=== PATIENT | female | born 1950 ===

== ENCOUNTER 2017-02-24 12:50 | Inpatient (IN) | payer MEDICARE, MEDICAID ==
[~2017-02-24] VITALS: Ht 170.2 cm; Wt 67.1 kg
[2017-02-24] VITALS (10 sets, daily range): BP systolic 84–130; BP diastolic 46–68
[2017-02-24] MEDS ORDERED: levoFLOXACIN-Levaquin 750MG/D5 150 ML IV ONE (12:55)
[2017-02-24] MEDS ORDERED: vancomycin/NS 1 GM ADD-VANTAGE 250 ML IV ONE (12:55)
[2017-02-24] MEDS ORDERED: methylPREDNISolone sod succ 125mg/2ml vial IV ONE ×2 (12:55→14:50)
[2017-02-24] MEDS ORDERED: magnesium 2GM in 50ml NS 50 ML IV ONE (12:55)
[2017-02-24] MEDS ORDERED: ipratropium/albuterol 3ml nebule NEB ONE (12:55)
[2017-02-24] MEDS ORDERED: normal saline 1000ML IV soln IV ONE (12:55)
[2017-02-24] MEDS ORDERED: ipratropium 0.5 MG/2.5ML nebule IH ONE (13:05)
[2017-02-24] MEDS ORDERED: albuterol 2.5 MG/3 ML nebule CONTNEB PRN (13:05)
[2017-02-24 13:13] LABS: HEMATOCRIT 42.9 % (35.0-45.0); MEAN CORPUSCULAR HEMOGLOBIN 31.6 PG (27.0-31.0); MEAN CORPUSCULAR HGB CONC 32.6 % (33.0-36.5); MEAN CORPUSCULAR VOLUME 96.9 FL (78-98); MEAN PLATELET VOLUME 7.6 FL (7.4-10.4); PLATELET COUNT 350 X10'3 (140-440); RED BLOOD COUNT 4.42 X10'6 (4.20-5.60); RED CELL DISTRIBUTION WIDTH 14.9 % (11.5-14.5)
[2017-02-24] MEDS ORDERED: LORazepam 2 mg/ml vial IV ONE (13:15)
[2017-02-24 13:27] LABS: INR 1.2 INR; PARTIAL THROMBOPLASTIN TIME 25 SECONDS (22-32); PROTHROMBIN TIME 12.5 SECONDS (9.0-12.0)
[2017-02-24 13:29] LABS: WHITE BLOOD COUNT 30.4 X10'3 (4.5-11.0)
[2017-02-24 13:32] LABS: ALANINE AMINOTRANSFERASE 38 U/L (12-78); ALBUMIN 2.7 G/DL (3.4-5.0); ALBUMIN/GLOBULIN RATIO 0.6 (1.1-1.5); ALKALINE PHOSPHATASE 136 IU/L (46-116); ANION GAP 16 (8-16); ASPARTATE AMINO TRANSFERASE 67 U/L (10-37); BLOOD UREA NITROGEN 20 MG/DL (7-18); CALCIUM 9.4 MG/DL (8.5-10.1); CHLORIDE 92 MMOL/L (99-107); CREATININE 1.43 MG/DL (0.40-0.90); GLUCOSE 181 MG/DL (70-104); POTASSIUM 4.1 MMOL/L (3.5-5.1); SODIUM 131 MMOL/L (135-145); TOTAL CARBON DIOXIDE 22.7 MMOL/L (24-32); TOTAL PROTEIN 7.2 G/DL (6.4-8.2); eGFR 37 ML/MIN
[2017-02-24 13:35] LABS: PLATELET ESTIMATE NORMAL; TOTAL CELLS COUNTED 100
[2017-02-24 13:36] LABS: TOXIC GRANULATION 3+
[2017-02-24 13:37] LABS: MAGNESIUM 2.1 MG/DL (1.5-2.4); PHOSPHORUS 5.7 MG/DL (2.3-4.5)
[2017-02-24] MEDS ORDERED: propofol 1000mg/100ml bottle 100 ML IV PRN (13:43)
[2017-02-24] MEDS ORDERED: adenosine 3mg/ml 2ml vial IV ONE ×4 (13:45→14:20)
[2017-02-24] MEDS: NORepinephrine 8mg/ 250ml NS 250 ML IV SCH (14:30)
[2017-02-24] MEDS ORDERED: normal saline 1000ml 1,000 ML IV ONE ×2 (14:30)
[2017-02-24 14:31] LABS: CLARITY,URINE Turbid (Clear); COLOR,URINE Dark Yellow (Yellow); GLUCOSE, URINE 100 mg/dl (Neg); KETONES,URINE Negative (Neg); LEUKOCYTE ESTERASE ,URINE Negative (Neg); NITRITES, URINE Negative (Neg); OCCULT BLOOD,URINE Trace (Neg); PROTEIN,URINE 300 mg/dl (Neg); URINE HCG NEGATIVE (NEG)
[2017-02-24 14:32] LABS: UA COLLECTION TYPE FOLEY CATH
[2017-02-24] MEDS ORDERED: normal saline 1000ML IV soln IVB ONE (14:35)
[2017-02-24] MEDS ORDERED: sodium phosphate inj. 15 MMOL in dextrose 5%-water 150 ML IV PRN (14:40)
[2017-02-24] MEDS ORDERED: magnesium 4gm in 100ml NS 100 ML IV PRN (14:40)
[2017-02-24] MEDS ORDERED: sodium phosphate inj. 30 MMOL in dextrose 5%-water 250 ML IV PRN (14:40)
[2017-02-24] MEDS ORDERED: magnesium 2GM in 50ml NS 50 ML IV PRN (14:40)
[2017-02-24] MEDS ORDERED: enoxaparin 60mg/0.6ml syringe SUBCUT ONE (14:40)
[2017-02-24] MEDS ORDERED: ondansetron/PF 4mg/2ml inj IV PRN (14:40)
[2017-02-24] MEDS ORDERED: acetaminophen 325mg tablet PO PRN ×2 (14:40)
[2017-02-24] MEDS ORDERED: potassium Cl 20 mEq SR tablet PO PRN ×2 (14:40)
[2017-02-24] MEDS ORDERED: magnesium Cl slow-release 64mg tablet PO PRN (14:40)
[2017-02-24] MEDS ORDERED: magnesium hydroxide 30ml (MOM) UD suspension PO PRN (14:40)
[2017-02-24] MEDS ORDERED: Neutra Phos packet PO PRN (14:40)
[2017-02-24] MEDS ORDERED: CefTRIAXone 2gm/NS 100ml IVPB 100 ML IV ONE (14:50)
[2017-02-24] MEDS ORDERED: aspirin 325mg tablet PO ONE (14:50)
[2017-02-24 14:51] LABS: AMORPHOUS URATES 4+
[2017-02-24 14:55] LABS: BACTERIA,URINE FEW /HPF (Neg); RBC,URINE NONE SEEN /HPF (0-2)
[2017-02-24 14:57] LABS: MUCUS STRANDS FEW /LPF (Neg); SQUAMOUS EPITHELIAL CELL,UR FEW /LPF (FEW)
[2017-02-24] MEDS ORDERED: NORepinephrine 8mg/ 250ml NS 250 ML IV SCH (15:00)
[2017-02-24 15:56] LABS: ABG BASE EXCESS -11.3 mmol/L (-2.0-3.0); ABG HCO3 20.5 mmol/L (22.0-26.0); ABG OXYGEN SATURATION 98.1 % (95-98); ABG PCO2 (T) 81.9 mmHg (32.0-45.0); ABG PO2 (T) 168.1 mmHg (83-108); ALLEN'S TEST Positive; FCOHb 0.3 % (0.5-1.5); FMetHb 0.3 % (0.3-1.12); FO2Hb 97.5 % (94-100); MINUTE VOLUME 7 L/min; PATIENT TEMPERATURE 37.7; PEEP 5 cm H2O; RESPIRATORY RATE 16 b/min; TIDAL VOLUME 400 mL; TOTAL HEMOGLOBIN 12.2 G/dl (12.0-16.0)
[2017-02-24] MEDS: ipratropium/albuterol 3ml nebule NEB PRN (16:06)
[2017-02-24] MEDS: DOBUTamine-DoBUTrex 500mg/D5W 250 ML IV SCH (16:57)
[2017-02-24] MEDS: FENTANYL-0.9 % NACL/PF 100 ML IV PRN (17:54)
[2017-02-24] MEDS: midazolam 100mg in NS 100ml 100 ML IV PRN (17:54)
[2017-02-24] MEDS ORDERED: Permethrin 1% 59ml topical rinse TP ONE ×2 (18:12→18:15)
[2017-02-24] MEDS ORDERED: Permethrin Cream 60gm TP ONE (18:20)
[2017-02-24] MEDS: famotidine/PF 10 mg/ml inj IV SCH (19:20)
[2017-02-24] MEDS: methylPREDNISolone sod succ 125mg/2ml vial IV SCH (19:20)
[2017-02-24] MEDS: enoxaparin 60mg/0.6ml syringe SUBCUT SCH (19:21)
[2017-02-24] MEDS: docusate sod 100mg capsule PO SCH (19:51)
[2017-02-24 21:36] LABS: ABG BASE EXCESS -10.7 mmol/L (-2.0-3.0); ABG HCO3 18.7 mmol/L (22.0-26.0); ABG OXYGEN SATURATION 98.5 % (95-98); ABG PCO2 (T) 52.9 mmHg (32.0-45.0); ABG PH (T) 7.153 (7.350-7.450); ABG PO2 (T) 155.3 mmHg (83-108); FCOHb 0.3 % (0.5-1.5); FMetHb 0.2 % (0.3-1.12); MINUTE VOLUME 9 L/min; PATIENT TEMPERATURE 34.9; PEEP 5 cm H2O; RESPIRATORY RATE 18 b/min; RESPIRATORY RATE (OBSERVED) 18 b/min; TIDAL VOLUME 500 mL; TOTAL HEMOGLOBIN 11.9 G/dl (12.0-16.0)
[2017-02-24 21:41] LABS: OXYGEN SATURATION (MIXED VEN) 82.2 % (60-80); PO2 MIXED VENOUS (TEMP COR) 48.3 mmHg (35-46)
[2017-02-24] MEDS ORDERED: albumin (human) 25% 100 ML IV solution IV ONE (21:50)
[2017-02-25] VITALS (25 sets, daily range): BP systolic 90–115; BP diastolic 54–73
[2017-02-25] MEDS: NORepinephrine 8mg/ 250ml NS 250 ML IV SCH (00:45)
[2017-02-25 01:31] LABS: PARTIAL THROMBOPLASTIN TIME 41 SECONDS (22-32)
[2017-02-25 01:42] LABS: ALANINE AMINOTRANSFERASE 1027 U/L (12-78); ALBUMIN 2.6 G/DL (3.4-5.0); ALBUMIN/GLOBULIN RATIO 0.9 (1.1-1.5); ALKALINE PHOSPHATASE 76 IU/L (46-116); ANION GAP 13 (8-16); ASPARTATE AMINO TRANSFERASE 2417 U/L (10-37); BLOOD UREA NITROGEN 23 MG/DL (7-18); BUN/CREATININE RATIO 28.8 (6.6-38.0); CALCIUM 7.7 MG/DL (8.5-10.1); CHLORIDE 104 MMOL/L (99-107); GLUCOSE 190 MG/DL (70-104); PHOSPHORUS 5.1 MG/DL (2.3-4.5); POTASSIUM 4.2 MMOL/L (3.5-5.1); SODIUM 137 MMOL/L (135-145); TOTAL CARBON DIOXIDE 20.2 MMOL/L (24-32); TOTAL PROTEIN 5.5 G/DL (6.4-8.2); eGFR 72 ML/MIN
[2017-02-25 02:04] LABS: BASOPHILS % (AUTO) 0.1 % (0-1); EOSINOPHILS # (AUTO) 0.3 X10'3 (0-0.9); EOSINOPHILS % (AUTO) 1.3 % (0-6); HEMOGLOBIN 10.1 g/dl (12.0-16.0); LYMPHOCYTES # (AUTO) 0.6 X10'3 (1.1-4.8); MEAN CORPUSCULAR HEMOGLOBIN 31.5 PG (27.0-31.0); MEAN CORPUSCULAR HGB CONC 32.7 % (33.0-36.5); MEAN CORPUSCULAR VOLUME 96.3 FL (78-98); MEAN PLATELET VOLUME 7.9 FL (7.4-10.4); MONOCYTES # (AUTO) 0.1 X10'3 (0-0.9); MONOCYTES % (AUTO) 0.5 % (2-12); NEUTROPHILS # (AUTO) 17.9 X10'3 (1.8-7.7); NEUTROPHILS % (AUTO) 95.1 % (42-75); PLATELET COUNT 175 X10'3 (140-440); RED BLOOD COUNT 3.21 X10'6 (4.20-5.60); RED CELL DISTRIBUTION WIDTH 15.1 % (11.5-14.5); WHITE BLOOD COUNT 18.8 X10'3 (4.5-11.0)
[2017-02-25] MEDS: methylPREDNISolone sod succ 125mg/2ml vial IV SCH ×4 (02:09→21:22)
[2017-02-25 04:10] LABS: ABG BASE EXCESS -7.6 mmol/L (-2.0-3.0); ABG HCO3 18.8 mmol/L (22.0-26.0); ABG OXYGEN SATURATION 97.9 % (95-98); ABG PCO2 (T) 40.1 mmHg (32.0-45.0); ABG PH (T) 7.285 (7.350-7.450); ABG PO2 (T) 116.1 mmHg (83-108); FCOHb 0.3 % (0.5-1.5); FMetHb 0.3 % (0.3-1.12); FO2Hb 97.3 % (94-100); MINUTE VOLUME 10 L/min; PATIENT TEMPERATURE 36.2; PEEP 5 cm H2O; RESPIRATORY RATE 18 b/min; RESPIRATORY RATE (OBSERVED) 20 b/min; TIDAL VOLUME 500 mL; TOTAL HEMOGLOBIN 10.5 G/dl (12.0-16.0)
[2017-02-25] MEDS: docusate sod 100mg capsule PO SCH ×2 (08:00→21:23)
[2017-02-25] MEDS ORDERED: CefTRIAXone 2gm/D5W 50ml ADVTG 100 ML IV SCH (08:00)
[2017-02-25] MEDS: CefTRIAXone 2gm/NS 100ml IVPB 100 ML IV SCH (08:08)
[2017-02-25] MEDS: aspirin 325mg tablet PO SCH (08:11)
[2017-02-25] MEDS: enoxaparin 60mg/0.6ml syringe SUBCUT SCH ×2 (08:11→21:24)
[2017-02-25] MEDS: famotidine/PF 10 mg/ml inj IV SCH ×2 (08:11→21:22)
[2017-02-25] MEDS: levoFLOXACIN-Levaquin 500mg/D5 100 ML IV SCH (08:57)
[2017-02-25 09:01] LABS: TROPONIN I 4.42 NG/ML (0.0-0.05)
[2017-02-25] MEDS ORDERED: atorvastatin 20mg tablet PO SCH ×2 (10:05→10:17)
[2017-02-25 10:20] LABS: CHOL/HDL RATIO 4.8 (0.00-4.99); CHOLESTEROL 58 MG/DL (0-200); HDL CHOLESTEROL 12 MG/DL (35-60); LDL CHOLESTEROL 35 MG/DL (50-100); TRIGLYCERIDES 46 MG/DL (20-135)
[2017-02-25] MEDS ORDERED: MESSAGE TO PHARMACY PO ONE (10:35)
[2017-02-25] MEDS ORDERED: dextrose 50%-water 50ml dispensing syringe IV PRN (10:35)
[2017-02-25] MEDS ORDERED: glucagon, human recombinant 1mg kit SUBCUT PRN (10:35)
[2017-02-25] MEDS ORDERED: dextrose ORAL solution 15 GM/59 ML bottle PO PRN ×2 (10:35)
[2017-02-25] MEDS ORDERED: UNABLE TO OBTAIN (11:34)
[2017-02-25] MEDS: FENTANYL-0.9 % NACL/PF 100 ML IV PRN (11:36)
[2017-02-25 11:59] LABS: HEMOGLOBIN A1C 5.5 % (4.5-6.2)
[2017-02-25 15:27] LABS: HIV ANTIBODY 1&2 RAPID NON-REACTIVE (Neg)
[2017-02-25] MEDS: insulin glargine (Lantus) pen - multi-dose SQ SCH (21:00)
[2017-02-25] MEDS: DOBUTamine-DoBUTrex 500mg/D5W 250 ML IV SCH (23:34)
[2017-02-26] VITALS (22 sets, daily range): BP systolic 96–124; BP diastolic 53–72
[2017-02-26] MEDS: methylPREDNISolone sod succ 125mg/2ml vial IV SCH ×4 (01:12→22:22)
[2017-02-26 02:03] LABS: PARTIAL THROMBOPLASTIN TIME 36 SECONDS (22-32)
[2017-02-26 02:14] LABS: BASOPHILS % (AUTO) 0 % (0-1); EOSINOPHILS # (AUTO) 0.3 X10'3 (0-0.9); EOSINOPHILS % (AUTO) 2.4 % (0-6); HEMOGLOBIN 9.2 g/dl (12.0-16.0); LYMPHOCYTES # (AUTO) 0.3 X10'3 (1.1-4.8); LYMPHOCYTES % (AUTO) 2.4 % (21-51); MEAN CORPUSCULAR HEMOGLOBIN 31.1 PG (27.0-31.0); MEAN CORPUSCULAR HGB CONC 32.7 % (33.0-36.5); MEAN CORPUSCULAR VOLUME 95.1 FL (78-98); MEAN PLATELET VOLUME 8.1 FL (7.4-10.4); MONOCYTES # (AUTO) 0.3 X10'3 (0-0.9); MONOCYTES % (AUTO) 1.8 % (2-12); NEUTROPHILS % (AUTO) 93.4 % (42-75); PLATELET COUNT 180 X10'3 (140-440); RED BLOOD COUNT 2.95 X10'6 (4.20-5.60); WHITE BLOOD COUNT 13.9 X10'3 (4.5-11.0)
[2017-02-26 02:19] LABS: ALANINE AMINOTRANSFERASE 720 U/L (12-78); ALBUMIN 2.2 G/DL (3.4-5.0); ALBUMIN/GLOBULIN RATIO 0.7 (1.1-1.5); ALKALINE PHOSPHATASE 98 IU/L (46-116); ANION GAP 9 (8-16); ASPARTATE AMINO TRANSFERASE 770 U/L (10-37); BILIRUBIN,TOTAL 0.6 MG/DL (0.1-1.0); BLOOD UREA NITROGEN 19 MG/DL (7-18); BUN/CREATININE RATIO 23.8 (6.6-38.0); CALCIUM 8.4 MG/DL (8.5-10.1); CHLORIDE 107 MMOL/L (99-107); GLUCOSE 198 MG/DL (70-104); MAGNESIUM 2.1 MG/DL (1.5-2.4); PHOSPHORUS 2.4 MG/DL (2.3-4.5); POTASSIUM 3.8 MMOL/L (3.5-5.1); SODIUM 140 MMOL/L (135-145); TOTAL CARBON DIOXIDE 23.9 MMOL/L (24-32); TOTAL PROTEIN 5.4 G/DL (6.4-8.2); eGFR 72 ML/MIN
[2017-02-26 02:20] LABS: TROPONIN I 4.11 NG/ML (0.0-0.05)
[2017-02-26 02:46] LABS: ABG BASE EXCESS -1.5 mmol/L (-2.0-3.0); ABG HCO3 22.4 mmol/L (22.0-26.0); ABG OXYGEN SATURATION 95.2 % (95-98); ABG PCO2 (T) 33.6 mmHg (32.0-45.0); ABG PO2 (T) 75.7 mmHg (83-108); FCOHb 0.3 % (0.5-1.5); FMetHb 0.3 % (0.3-1.12); FO2Hb 94.6 % (94-100); MINUTE VOLUME 10 L/min; PATIENT TEMPERATURE 36.3; PEEP 5 cm H2O; RESPIRATORY RATE 18 b/min; RESPIRATORY RATE (OBSERVED) 18 b/min; TIDAL VOLUME 500 mL; TOTAL HEMOGLOBIN 9.9 G/dl (12.0-16.0)
[2017-02-26] MEDS: docusate sod 100mg capsule PO SCH ×2 (08:00→22:21)
[2017-02-26] MEDS: FENTANYL-0.9 % NACL/PF 100 ML IV PRN (08:09)
[2017-02-26] MEDS: midazolam 100mg in NS 100ml 100 ML IV PRN (08:09)
[2017-02-26] MEDS: LACTOBACILLUS RHAMNOSUS GG 15 billion unit sprinkle caps PO SCH (08:20)
[2017-02-26] MEDS: furosemide 20 MG/2 ML vial IV SCH ×3 (08:21→23:50)
[2017-02-26] MEDS: CefTRIAXone 2gm/NS 100ml IVPB 100 ML IV SCH (08:21)
[2017-02-26] MEDS: famotidine/PF 10 mg/ml inj IV SCH ×2 (08:21→22:21)
[2017-02-26] MEDS: enoxaparin 60mg/0.6ml syringe SUBCUT SCH ×2 (08:22→22:22)
[2017-02-26] MEDS: aspirin 325mg tablet PO SCH (08:23)
[2017-02-26] MEDS: levoFLOXACIN-Levaquin 500mg/D5 100 ML IV SCH (09:47)
[2017-02-26] MEDS ORDERED: potassium Cl 40MEQ/250ML bag 250 ML IV PRN (11:25)
[2017-02-26] MEDS ORDERED: magnesium 4gm in 100ml NS 100 ML IV PRN (11:25)
[2017-02-26] MEDS: insulin regular, human vial - multi-dose SQ SCH ×2 (14:10→22:27)
[2017-02-26] MEDS ORDERED: lactulose 20gm/30ml cup PO PRN (14:40)
[2017-02-26] MEDS ORDERED: bisacodyl 10mg suppository rectal RC PRN (14:40)
[2017-02-26] MEDS: potassium Cl 40MEQ/250ML bag 250 ML IV PRN (15:24)
[2017-02-26] MEDS ORDERED: fentaNYL/PF 50MCG/1 ML 2ML syringe ONE (15:53)
[2017-02-26] MEDS ORDERED: midazolam 2 mg/2 ml injection ONE (15:53)
[2017-02-26] MEDS ORDERED: heparin 1,000unit/ml 10ml vial 10 ML ONE (15:53)
[2017-02-26] MEDS ORDERED: LIDOcaine 1%/PF (10mg/ml) 5ml vial ONE (15:53)
[2017-02-26] MEDS ORDERED: nitroGLYCERIN-Tridil 50MG/D5W 250 ML IV ONE (15:53)
[2017-02-26] MEDS ORDERED: iohexol 350 MG/ML 50ML vial IV ONE (15:54)
[2017-02-26] MEDS ORDERED: iohexol 350MG/ML 100ml bottle IV ONE (15:54)
[2017-02-26] MEDS ORDERED: furosemide 40mg/4ml inj ONE (17:26)
[2017-02-26 18:16] LABS: ISTAT Hct MIX 25 %PCV (35-48); ISTAT O2 SATURATION MIX VENOUS 50 % (60-80); ISTAT SOURCE MIX
[2017-02-26 18:16] LABS: ISTAT HGB ART 8.5 g/dl (12.0-16.0); ISTAT Hct ART 25 %PCV (35-48); ISTAT O2 SATURATION ARTERIAL 100 % (95-98); ISTAT SOURCE ART
[2017-02-26] MEDS ORDERED: aspirin 81mg tab.chew PO ONE (20:45)
[2017-02-26] MEDS: atorvastatin 20mg tablet PO SCH (22:23)
[2017-02-26] MEDS: insulin glargine (Lantus) pen - multi-dose SQ SCH (22:24)
[2017-02-27] VITALS (24 sets, daily range): BP systolic 75–142; BP diastolic 55–100
[2017-02-27] MEDS: FENTANYL-0.9 % NACL/PF 100 ML IV PRN ×2 (00:50→16:24)
[2017-02-27] MEDS: methylPREDNISolone sod succ 125mg/2ml vial IV SCH ×4 (02:00→20:39)
[2017-02-27 03:38] LABS: PARTIAL THROMBOPLASTIN TIME 31 SECONDS (22-32)
[2017-02-27 03:41] LABS: ALANINE AMINOTRANSFERASE 456 U/L (12-78); ALBUMIN/GLOBULIN RATIO 0.6 (1.1-1.5); ALKALINE PHOSPHATASE 120 IU/L (46-116); ANION GAP 7 (8-16); ASPARTATE AMINO TRANSFERASE 194 U/L (10-37); BILIRUBIN,TOTAL 0.4 MG/DL (0.1-1.0); BLOOD UREA NITROGEN 27 MG/DL (7-18); CALCIUM 8.2 MG/DL (8.5-10.1); CHLORIDE 110 MMOL/L (99-107); GLUCOSE 142 MG/DL (70-104); MAGNESIUM 2.2 MG/DL (1.5-2.4); PHOSPHORUS 2.3 MG/DL (2.3-4.5); POTASSIUM 4.4 MMOL/L (3.5-5.1); SODIUM 145 MMOL/L (135-145); TOTAL CARBON DIOXIDE 28.1 MMOL/L (24-32); TOTAL PROTEIN 5.4 G/DL (6.4-8.2); eGFR 63 ML/MIN
[2017-02-27 03:49] LABS: BASOPHILS % (AUTO) 0.1 % (0-1); EOSINOPHILS % (AUTO) 0 % (0-6); HEMATOCRIT 26.2 % (35.0-45.0); HEMOGLOBIN 9.1 g/dl (12.0-16.0); LYMPHOCYTES # (AUTO) 0.4 X10'3 (1.1-4.8); LYMPHOCYTES % (AUTO) 3.3 % (21-51); MEAN CORPUSCULAR HEMOGLOBIN 32.9 PG (27.0-31.0); MEAN CORPUSCULAR HGB CONC 34.6 % (33.0-36.5); MEAN CORPUSCULAR VOLUME 95.1 FL (78-98); MONOCYTES # (AUTO) 0.2 X10'3 (0-0.9); MONOCYTES % (AUTO) 1.6 % (2-12); PLATELET COUNT 161 X10'3 (140-440); RED BLOOD COUNT 2.75 X10'6 (4.20-5.60); RED CELL DISTRIBUTION WIDTH 14.1 % (11.5-14.5); WHITE BLOOD COUNT 11.6 X10'3 (4.5-11.0)
[2017-02-27 04:05] LABS: ABG BASE EXCESS 0.5 mmol/L (-2.0-3.0); ABG HCO3 24.1 mmol/L (22.0-26.0); ABG OXYGEN SATURATION 97.7 % (95-98); ABG PCO2 (T) 33.3 mmHg (32.0-45.0); ABG PH (T) 7.474 (7.350-7.450); ABG PO2 (T) 101.8 mmHg (83-108); FCOHb 0.3 % (0.5-1.5); FMetHb 0.3 % (0.3-1.12); FO2Hb 97.1 % (94-100); MINUTE VOLUME 9 L/min; PATIENT TEMPERATURE 35.9; PEEP 5 cm H2O; RESPIRATORY RATE 18 b/min; RESPIRATORY RATE (OBSERVED) 18 b/min; TIDAL VOLUME 500 mL; TOTAL HEMOGLOBIN 9.7 G/dl (12.0-16.0)
[2017-02-27] MEDS: ipratropium/albuterol 3ml nebule NEB PRN (05:03)
[2017-02-27] MEDS: carVEDilol 3.125mg tablet PO SCH ×3 (08:00→20:40)
[2017-02-27] MEDS: K and/or MAG REPLACEMENT MC SCH (08:00)
[2017-02-27] MEDS: CefTRIAXone 2gm/NS 100ml IVPB 100 ML IV SCH (08:18)
[2017-02-27] MEDS: DOBUTamine-DoBUTrex 500mg/D5W 250 ML IV SCH (08:18)
[2017-02-27] MEDS: levoFLOXACIN-Levaquin 500mg/D5 100 ML IV SCH (08:18)
[2017-02-27] MEDS: docusate sod 100mg capsule PO SCH ×2 (08:18→20:40)
[2017-02-27] MEDS: LACTOBACILLUS RHAMNOSUS GG 15 billion unit sprinkle caps PO SCH (08:19)
[2017-02-27] MEDS: sacubitril/valsartan 24mg-26mg tablet PO SCH ×2 (08:19→20:39)
[2017-02-27] MEDS: aspirin 81mg tab.chew PO SCH (08:19)
[2017-02-27] MEDS: famotidine/PF 10 mg/ml inj IV SCH ×2 (08:22→20:39)
[2017-02-27] MEDS: furosemide 20 MG/2 ML vial IV SCH ×2 (08:22→16:27)
[2017-02-27] MEDS: insulin regular, human vial - multi-dose SQ SCH ×3 (08:40→20:51)
[2017-02-27] MEDS: spironolactone 25 MG tablet PO SCH ×2 (09:38→20:40)
[2017-02-27] MEDS ORDERED: lactulose 20gm/30ml cup PO PRN (10:15)
[2017-02-27 13:28] LABS: HEPATITIS C ANTIBODY <0.1 s/co ratio (0.0-0.9)
[2017-02-27] MEDS: midazolam 100mg in NS 100ml 100 ML IV PRN (16:25)
[2017-02-27] MEDS: NORepinephrine 8mg/ 250ml NS 250 ML IV SCH (16:27)
[2017-02-27] MEDS: atorvastatin 20mg tablet PO SCH (20:40)
[2017-02-27] MEDS: insulin glargine (Lantus) pen - multi-dose SQ SCH (20:47)
[2017-02-27 22:17] LABS: POTASSIUM 3.5 MMOL/L (3.5-5.1)
[2017-02-27] MEDS ORDERED: potassium Cl 40MEQ/250ML bag 250 ML IV ONE (22:42)
[2017-02-27] MEDS: normal saline 1000ml 1,000 ML IV SCH (22:52)
[2017-02-28] VITALS (24 sets, daily range): BP systolic 82–121; BP diastolic 54–78
[2017-02-28] MEDS: methylPREDNISolone sod succ 125mg/2ml vial IV SCH ×4 (02:37→19:56)
[2017-02-28 02:39] LABS: BASOPHILS % (AUTO) 0 % (0-1); EOSINOPHILS # (AUTO) 0.2 X10'3 (0-0.9); EOSINOPHILS % (AUTO) 1.1 % (0-6); HEMATOCRIT 29.6 % (35.0-45.0); HEMOGLOBIN 9.7 g/dl (12.0-16.0); LYMPHOCYTES # (AUTO) 0.3 X10'3 (1.1-4.8); LYMPHOCYTES % (AUTO) 1.8 % (21-51); MEAN CORPUSCULAR HEMOGLOBIN 31.4 PG (27.0-31.0); MEAN CORPUSCULAR HGB CONC 32.7 % (33.0-36.5); MONOCYTES # (AUTO) 0.1 X10'3 (0-0.9); MONOCYTES % (AUTO) 0.8 % (2-12); NEUTROPHILS # (AUTO) 15.5 X10'3 (1.8-7.7); NEUTROPHILS % (AUTO) 96.3 % (42-75); PLATELET COUNT 234 X10'3 (140-440); RED BLOOD COUNT 3.09 X10'6 (4.20-5.60); RED CELL DISTRIBUTION WIDTH 15.7 % (11.5-14.5); WHITE BLOOD COUNT 16.1 X10'3 (4.5-11.0)
[2017-02-28] MEDS: insulin regular, human vial - multi-dose SQ SCH ×3 (02:39→20:04)
[2017-02-28 03:07] LABS: ALANINE AMINOTRANSFERASE 338 U/L (12-78); ALBUMIN/GLOBULIN RATIO 0.5 (1.1-1.5); ALKALINE PHOSPHATASE 123 IU/L (46-116); ANION GAP 7 (8-16); ASPARTATE AMINO TRANSFERASE 100 U/L (10-37); BILIRUBIN,TOTAL 0.4 MG/DL (0.1-1.0); BLOOD UREA NITROGEN 24 MG/DL (7-18); CALCIUM 8.5 MG/DL (8.5-10.1); CHLORIDE 111 MMOL/L (99-107); CHOL/HDL RATIO 3.4 (0.00-4.99); CHOLESTEROL 85 MG/DL (0-200); GLUCOSE 199 MG/DL (70-104); HDL CHOLESTEROL 25 MG/DL (35-60); LDL CHOLESTEROL 49 MG/DL (50-100); MAGNESIUM 2.1 MG/DL (1.5-2.4); PHOSPHORUS 2.8 MG/DL (2.3-4.5); SODIUM 147 MMOL/L (135-145); TOTAL CARBON DIOXIDE 28.9 MMOL/L (24-32); TOTAL PROTEIN 6.1 G/DL (6.4-8.2); TRIGLYCERIDES 60 MG/DL (20-135); eGFR 72 ML/MIN
[2017-02-28 03:27] LABS: PARTIAL THROMBOPLASTIN TIME 27 SECONDS (22-32)
[2017-02-28 03:36] LABS: ANISOCYTOSIS 1+; PLATELET ESTIMATE NORMAL; TOTAL CELLS COUNTED 100
[2017-02-28 03:37] LABS: TOXIC GRANULATION 1+
[2017-02-28 04:05] LABS: ABG BASE EXCESS 4.4 mmol/L (-2.0-3.0); ABG HCO3 28.9 mmol/L (22.0-26.0); ABG OXYGEN SATURATION 90.4 % (95-98); ABG PH (T) 7.462 (7.350-7.450); ABG PO2 (T) 54.2 mmHg (83-108); ALLEN'S TEST Positive; FCOHb 0.1 % (0.5-1.5); FMetHb 0.3 % (0.3-1.12); MINUTE VOLUME 7 L/min; PATIENT TEMPERATURE 36.2; PEEP 5 cm H2O; RESPIRATORY RATE (OBSERVED) 16 b/min; TIDAL VOLUME 701 mL
[2017-02-28] MEDS: aspirin 81mg tab.chew PO SCH (07:51)
[2017-02-28] MEDS: CefTRIAXone 2gm/NS 100ml IVPB 100 ML IV SCH (07:51)
[2017-02-28] MEDS: famotidine/PF 10 mg/ml inj IV SCH ×2 (07:51→19:53)
[2017-02-28] MEDS: LACTOBACILLUS RHAMNOSUS GG 15 billion unit sprinkle caps PO SCH (07:51)
[2017-02-28] MEDS: furosemide 20 MG/2 ML vial IV SCH ×3 (07:52→16:00)
[2017-02-28] MEDS: sacubitril/valsartan 24mg-26mg tablet PO SCH (07:52)
[2017-02-28] MEDS: carVEDilol 3.125mg tablet PO SCH ×2 (07:52→19:57)
[2017-02-28] MEDS: docusate sod 100mg capsule PO SCH ×2 (07:52→19:57)
[2017-02-28] MEDS: levoFLOXACIN-Levaquin 500mg/D5 100 ML IV SCH (07:52)
[2017-02-28] MEDS: spironolactone 25 MG tablet PO SCH ×2 (07:52→19:57)
[2017-02-28] MEDS: K and/or MAG REPLACEMENT MC SCH (08:00)
[2017-02-28] MEDS: ipratropium/albuterol 3ml nebule NEB SCH ×4 (11:14→22:51)
[2017-02-28] MEDS: DOBUTamine-DoBUTrex 500mg/D5W 250 ML IV SCH (16:17)
[2017-02-28] MEDS: FENTANYL-0.9 % NACL/PF 100 ML IV PRN (16:17)
[2017-02-28] MEDS: midazolam 100mg in NS 100ml 100 ML IV PRN (19:49)
[2017-02-28] MEDS: NORepinephrine 8mg/ 250ml NS 250 ML IV SCH (19:50)
[2017-02-28] MEDS: atorvastatin 20mg tablet PO SCH (19:57)
[2017-02-28] MEDS: insulin glargine (Lantus) pen - multi-dose SQ SCH (20:05)
[2017-03-01] VITALS (24 sets, daily range): BP systolic 82–139; BP diastolic 54–91
[2017-03-01] MEDS: normal saline 1000ml 1,000 ML IV SCH (00:05)
[2017-03-01] MEDS: methylPREDNISolone sod succ 125mg/2ml vial IV SCH ×4 (02:18→21:25)
[2017-03-01] MEDS: insulin regular, human vial - multi-dose SQ SCH ×5 (02:22→21:34)
[2017-03-01 02:40] LABS: BASOPHILS % (AUTO) 0 % (0-1); EOSINOPHILS # (AUTO) 0.3 X10'3 (0-0.9); EOSINOPHILS % (AUTO) 1.7 % (0-6); HEMATOCRIT 29.1 % (35.0-45.0); HEMOGLOBIN 9.4 g/dl (12.0-16.0); LYMPHOCYTES # (AUTO) 0.3 X10'3 (1.1-4.8); MEAN CORPUSCULAR HEMOGLOBIN 31.4 PG (27.0-31.0); MEAN CORPUSCULAR HGB CONC 32.5 % (33.0-36.5); MEAN CORPUSCULAR VOLUME 96.6 FL (78-98); MONOCYTES # (AUTO) 0.4 X10'3 (0-0.9); MONOCYTES % (AUTO) 2.7 % (2-12); NEUTROPHILS # (AUTO) 15.3 X10'3 (1.8-7.7); NEUTROPHILS % (AUTO) 93.6 % (42-75); PLATELET COUNT 202 X10'3 (140-440); RED BLOOD COUNT 3.01 X10'6 (4.20-5.60); RED CELL DISTRIBUTION WIDTH 15.7 % (11.5-14.5); WHITE BLOOD COUNT 16.4 X10'3 (4.5-11.0)
[2017-03-01 02:51] LABS: PARTIAL THROMBOPLASTIN TIME 26 SECONDS (22-32)
[2017-03-01] MEDS: ipratropium/albuterol 3ml nebule NEB SCH ×6 (02:52→22:29)
[2017-03-01 03:02] LABS: ALANINE AMINOTRANSFERASE 228 U/L (12-78); ALBUMIN 1.7 G/DL (3.4-5.0); ALBUMIN/GLOBULIN RATIO 0.5 (1.1-1.5); ALKALINE PHOSPHATASE 110 IU/L (46-116); ANION GAP 5 (8-16); ASPARTATE AMINO TRANSFERASE 44 U/L (10-37); BILIRUBIN,TOTAL 0.4 MG/DL (0.1-1.0); BLOOD UREA NITROGEN 25 MG/DL (7-18); BUN/CREATININE RATIO 41.7 (6.6-38.0); CALCIUM 8.1 MG/DL (8.5-10.1); CHLORIDE 114 MMOL/L (99-107); GLUCOSE 183 MG/DL (70-104); PHOSPHORUS 3.2 MG/DL (2.3-4.5); POTASSIUM 3.4 MMOL/L (3.5-5.1); SODIUM 150 MMOL/L (135-145); TOTAL CARBON DIOXIDE 30.7 MMOL/L (24-32); TOTAL PROTEIN 5.2 G/DL (6.4-8.2); eGFR > 90 ML/MIN
[2017-03-01 04:10] LABS: ABG BASE EXCESS 3.3 mmol/L (-2.0-3.0); ABG HCO3 27.9 mmol/L (22.0-26.0); ABG OXYGEN SATURATION 95.2 % (95-98); ABG PCO2 (T) 41.3 mmHg (32.0-45.0); ABG PH (T) 7.445 (7.350-7.450); ABG PO2 (T) 74.3 mmHg (83-108); ALLEN'S TEST Positive; FCOHb 0.3 % (0.5-1.5); FMetHb 0.3 % (0.3-1.12); FO2Hb 94.6 % (94-100); MINUTE VOLUME 10 L/min; PATIENT TEMPERATURE 36.4; PEEP 5 cm H2O; RESPIRATORY RATE 16 b/min; RESPIRATORY RATE (OBSERVED) 23 b/min; TIDAL VOLUME 400 mL; TOTAL HEMOGLOBIN 10.7 G/dl (12.0-16.0)
[2017-03-01] MEDS ORDERED: potassium Cl 40MEQ/250ML bag 250 ML IV ONE (04:36)
[2017-03-01] MEDS: FENTANYL-0.9 % NACL/PF 100 ML IV PRN ×2 (04:43→21:24)
[2017-03-01] MEDS: potassium Cl 40MEQ/250ML bag 250 ML IV PRN (04:50)
[2017-03-01] MEDS: K and/or MAG REPLACEMENT MC SCH (07:01)
[2017-03-01] MEDS: carVEDilol 3.125mg tablet PO SCH ×2 (08:00→20:00)
[2017-03-01] MEDS: furosemide 20 MG/2 ML vial IV SCH ×3 (08:00→16:00)
[2017-03-01] MEDS: docusate sodium 100mg/10ml UD cup PO SCH ×2 (08:00→20:00)
[2017-03-01] MEDS: LACTOBACILLUS RHAMNOSUS GG 15 billion unit sprinkle caps PO SCH (09:12)
[2017-03-01] MEDS: famotidine/PF 10 mg/ml inj IV SCH ×2 (09:13→21:25)
[2017-03-01] MEDS: CefTRIAXone 2gm/NS 100ml IVPB 100 ML IV SCH (09:14)
[2017-03-01] MEDS: aspirin 81mg tab.chew PO SCH (09:17)
[2017-03-01] MEDS: spironolactone 25 MG tablet PO SCH ×2 (09:18→21:25)
[2017-03-01] MEDS: levoFLOXACIN-Levaquin 500mg/D5 100 ML IV SCH (10:07)
[2017-03-01] MEDS: midazolam 100mg in NS 100ml 100 ML IV PRN (10:32)
[2017-03-01] MEDS: DOBUTamine-DoBUTrex 500mg/D5W 250 ML IV SCH (17:51)
[2017-03-01] MEDS: atorvastatin 20mg tablet PO SCH (21:25)
[2017-03-01] MEDS: insulin glargine (Lantus) pen - multi-dose SQ SCH (21:33)
[2017-03-02] VITALS (24 sets, daily range): BP systolic 77–148; BP diastolic 52–106
[2017-03-02] MEDS: methylPREDNISolone sod succ 125mg/2ml vial IV SCH ×4 (02:03→20:16)
[2017-03-02] MEDS: insulin regular, human vial - multi-dose SQ SCH ×4 (02:04→20:18)
[2017-03-02] MEDS: ipratropium/albuterol 3ml nebule NEB SCH ×6 (02:29→22:35)
[2017-03-02 04:30] LABS: ABG BASE EXCESS 2.6 mmol/L (-2.0-3.0); ABG HCO3 26.6 mmol/L (22.0-26.0); ABG OXYGEN SATURATION 97.8 % (95-98); ABG PCO2 (T) 38.6 mmHg (32.0-45.0); ABG PH (T) 7.456 (7.350-7.450); ABG PO2 (T) 117.2 mmHg (83-108); ALLEN'S TEST Positive; FCOHb 0.3 % (0.5-1.5); FMetHb 0.3 % (0.3-1.12); FO2Hb 97.2 % (94-100); MINUTE VOLUME 8 L/min; PATIENT TEMPERATURE 37.1; PEEP 5 cm H2O; RESPIRATORY RATE 0 b/min; RESPIRATORY RATE (OBSERVED) 14 b/min; TIDAL VOLUME 621 mL; TOTAL HEMOGLOBIN 10.5 G/dl (12.0-16.0)
[2017-03-02 05:30] LABS: BASOPHILS % (AUTO) 0 % (0-1); EOSINOPHILS # (AUTO) 0.3 X10'3 (0-0.9); HEMATOCRIT 28.1 % (35.0-45.0); HEMOGLOBIN 9.3 g/dl (12.0-16.0); LYMPHOCYTES # (AUTO) 0.3 X10'3 (1.1-4.8); LYMPHOCYTES % (AUTO) 1.5 % (21-51); MEAN CORPUSCULAR HEMOGLOBIN 31.7 PG (27.0-31.0); MEAN PLATELET VOLUME 8.6 FL (7.4-10.4); MONOCYTES # (AUTO) 0.1 X10'3 (0-0.9); MONOCYTES % (AUTO) 0.9 % (2-12); NEUTROPHILS # (AUTO) 15.7 X10'3 (1.8-7.7); NEUTROPHILS % (AUTO) 95.6 % (42-75); PLATELET COUNT 153 X10'3 (140-440); RED BLOOD COUNT 2.93 X10'6 (4.20-5.60); RED CELL DISTRIBUTION WIDTH 16.6 % (11.5-14.5); WHITE BLOOD COUNT 16.4 X10'3 (4.5-11.0)
[2017-03-02 06:09] LABS: ALANINE AMINOTRANSFERASE 163 U/L (12-78); ALBUMIN 1.8 G/DL (3.4-5.0); ALBUMIN/GLOBULIN RATIO 0.6 (1.1-1.5); ALKALINE PHOSPHATASE 112 IU/L (46-116); ANION GAP 3 (8-16); ASPARTATE AMINO TRANSFERASE 34 U/L (10-37); BILIRUBIN,TOTAL 0.4 MG/DL (0.1-1.0); BLOOD UREA NITROGEN 27 MG/DL (7-18); CALCIUM 8.1 MG/DL (8.5-10.1); CHLORIDE 112 MMOL/L (99-107); GLUCOSE 176 MG/DL (70-104); PHOSPHORUS 2.6 MG/DL (2.3-4.5); POTASSIUM 4.2 MMOL/L (3.5-5.1); PREALBUMIN 15.4 MG/DL (19-36); SODIUM 146 MMOL/L (135-145); TOTAL CARBON DIOXIDE 30.7 MMOL/L (24-32); eGFR > 90 ML/MIN
[2017-03-02] MEDS ORDERED: Ivermectin 3mg tablet PO ONE (07:45)
[2017-03-02] MEDS: docusate sodium 100mg/10ml UD cup PO SCH ×2 (08:00→20:15)
[2017-03-02] MEDS: LACTOBACILLUS RHAMNOSUS GG 15 billion unit sprinkle caps PO SCH (09:01)
[2017-03-02] MEDS: CefTRIAXone 2gm/NS 100ml IVPB 100 ML IV SCH (09:02)
[2017-03-02] MEDS: famotidine/PF 10 mg/ml inj IV SCH ×2 (09:02→20:16)
[2017-03-02] MEDS: furosemide 20 MG/2 ML vial IV SCH ×3 (09:02→16:44)
[2017-03-02] MEDS: spironolactone 25 MG tablet PO SCH ×2 (09:02→20:00)
[2017-03-02] MEDS: aspirin 81mg tab.chew PO SCH (09:03)
[2017-03-02] MEDS: carVEDilol 3.125mg tablet PO SCH ×2 (09:03→20:00)
[2017-03-02] MEDS: levoFLOXACIN-Levaquin 500mg/D5 100 ML IV SCH (10:37)
[2017-03-02] MEDS: FENTANYL-0.9 % NACL/PF 100 ML IV PRN (10:37)
[2017-03-02] MEDS: midazolam 100mg in NS 100ml 100 ML IV PRN (16:45)
[2017-03-02] MEDS: chlorhexidine gluconate 15ml Cup****oral rinse MM SCH (20:15)
[2017-03-02] MEDS: atorvastatin 20mg tablet PO SCH (20:40)
[2017-03-02] MEDS: insulin glargine (Lantus) pen - multi-dose SQ SCH (20:41)
[2017-03-03] VITALS (24 sets, daily range): BP systolic 82–136; BP diastolic 54–99
[2017-03-03 01:25] LABS: BASOPHILS # (AUTO) 0.1 X10'3 (0-0.2); BASOPHILS % (AUTO) 0.3 % (0-1); EOSINOPHILS % (AUTO) 0 % (0-6); HEMATOCRIT 28.4 % (35.0-45.0); HEMOGLOBIN 9.4 g/dl (12.0-16.0); LYMPHOCYTES # (AUTO) 0.3 X10'3 (1.1-4.8); LYMPHOCYTES % (AUTO) 1.2 % (21-51); MEAN CORPUSCULAR HEMOGLOBIN 31.4 PG (27.0-31.0); MEAN CORPUSCULAR HGB CONC 33.3 % (33.0-36.5); MEAN CORPUSCULAR VOLUME 94.3 FL (78-98); MEAN PLATELET VOLUME 8.5 FL (7.4-10.4); MONOCYTES # (AUTO) 0.1 X10'3 (0-0.9); MONOCYTES % (AUTO) 0.5 % (2-12); NEUTROPHILS # (AUTO) 20.5 X10'3 (1.8-7.7); PLATELET COUNT 130 X10'3 (140-440); RED BLOOD COUNT 3.01 X10'6 (4.20-5.60); RED CELL DISTRIBUTION WIDTH 14.9 % (11.5-14.5)
[2017-03-03 01:37] LABS: ALANINE AMINOTRANSFERASE 116 U/L (12-78); ALBUMIN 1.7 G/DL (3.4-5.0); ALBUMIN/GLOBULIN RATIO 0.6 (1.1-1.5); ALKALINE PHOSPHATASE 101 IU/L (46-116); ANION GAP 2 (8-16); ASPARTATE AMINO TRANSFERASE 23 U/L (10-37); BILIRUBIN,TOTAL 0.5 MG/DL (0.1-1.0); BLOOD UREA NITROGEN 31 MG/DL (7-18); BUN/CREATININE RATIO 51.7 (6.6-38.0); CALCIUM 7.8 MG/DL (8.5-10.1); CHLORIDE 108 MMOL/L (99-107); GLUCOSE 137 MG/DL (70-104); PHOSPHORUS 3.2 MG/DL (2.3-4.5); POTASSIUM 4.1 MMOL/L (3.5-5.1); SODIUM 144 MMOL/L (135-145); TOTAL CARBON DIOXIDE 34.3 MMOL/L (24-32); TOTAL PROTEIN 4.7 G/DL (6.4-8.2); eGFR > 90 ML/MIN
[2017-03-03] MEDS: DOBUTamine-DoBUTrex 500mg/D5W 250 ML IV SCH (02:03)
[2017-03-03] MEDS: methylPREDNISolone sod succ 125mg/2ml vial IV SCH ×4 (02:03→20:18)
[2017-03-03] MEDS: insulin regular, human vial - multi-dose SQ SCH ×4 (02:10→20:53)
[2017-03-03] MEDS: ipratropium/albuterol 3ml nebule NEB SCH ×6 (02:27→22:53)
[2017-03-03 04:36] LABS: ABG BASE EXCESS 6.4 mmol/L (-2.0-3.0); ABG HCO3 30.5 mmol/L (22.0-26.0); ABG OXYGEN SATURATION 96.8 % (95-98); ABG PCO2 (T) 41.9 mmHg (32.0-45.0); ABG PO2 (T) 91.2 mmHg (83-108); ALLEN'S TEST Positive; FCOHb 0.3 % (0.5-1.5); FMetHb 0.1 % (0.3-1.12); FO2Hb 96.4 % (94-100); MINUTE VOLUME 8 L/min; PEEP 5 cm H2O; RESPIRATORY RATE 16 b/min; RESPIRATORY RATE (OBSERVED) 18 b/min; TIDAL VOLUME 484 mL; TOTAL HEMOGLOBIN 10.9 G/dl (12.0-16.0)
[2017-03-03] MEDS: FENTANYL-0.9 % NACL/PF 100 ML IV PRN (05:35)
[2017-03-03] MEDS: aspirin 81mg tab.chew PO SCH (07:23)
[2017-03-03] MEDS: chlorhexidine gluconate 15ml Cup****oral rinse MM SCH ×2 (07:23→20:00)
[2017-03-03] MEDS: furosemide 20 MG/2 ML vial IV SCH ×2 (07:23)
[2017-03-03] MEDS: famotidine/PF 10 mg/ml inj IV SCH ×2 (07:23→20:16)
[2017-03-03] MEDS: LACTOBACILLUS RHAMNOSUS GG 15 billion unit sprinkle caps PO SCH (07:23)
[2017-03-03] MEDS: carVEDilol 3.125mg tablet PO SCH (07:23)
[2017-03-03] MEDS: levoFLOXACIN-Levaquin 500mg/D5 100 ML IV SCH (07:24)
[2017-03-03] MEDS: spironolactone 25 MG tablet PO SCH (07:24)
[2017-03-03] MEDS: CefTRIAXone 2gm/NS 100ml IVPB 100 ML IV SCH (07:24)
[2017-03-03] MEDS: docusate sodium 100mg/10ml UD cup PO SCH ×2 (07:24→20:18)
[2017-03-03] MEDS ORDERED: heparin, porcine 5000 units/ml vial SQ ONE (08:15)
[2017-03-03] MEDS ORDERED: amiodarone 150mg/dext, iso-os 100 ML IV ONE (10:10)
[2017-03-03] MEDS: amiodarone/D5 360MG/200ML BAG 250 ML IV SCH ×2 (11:57→17:36)
[2017-03-03] MEDS: NORepinephrine 8mg/ 250ml NS 250 ML IV SCH (18:03)
[2017-03-03] MEDS: heparin, porcine 5000 units/ml vial SQ SCH (20:18)
[2017-03-03] MEDS: midazolam 100mg in NS 100ml 100 ML IV PRN (20:19)
[2017-03-03] MEDS: atorvastatin 20mg tablet PO SCH (20:51)
[2017-03-03] MEDS: insulin glargine (Lantus) pen - multi-dose SQ SCH (20:53)
[2017-03-04] VITALS (23 sets, daily range): BP systolic 91–131; BP diastolic 59–83
[2017-03-04] MEDS: methylPREDNISolone sod succ 125mg/2ml vial IV SCH ×2 (02:23→07:51)
[2017-03-04] MEDS: FENTANYL-0.9 % NACL/PF 100 ML IV PRN ×2 (02:25→21:10)
[2017-03-04] MEDS: insulin regular, human vial - multi-dose SQ SCH ×4 (02:28→20:39)
[2017-03-04] MEDS: ipratropium/albuterol 3ml nebule NEB SCH ×6 (02:54→22:55)
[2017-03-04] MEDS: DOBUTamine-DoBUTrex 500mg/D5W 250 ML IV SCH (03:10)
[2017-03-04] MEDS: amiodarone/D5 360MG/200ML BAG 250 ML IV SCH ×2 (03:12→14:25)
[2017-03-04 03:55] LABS: BASOPHILS % (AUTO) 0 % (0-1); EOSINOPHILS # (AUTO) 0.4 X10'3 (0-0.9); EOSINOPHILS % (AUTO) 1.8 % (0-6); HEMATOCRIT 29.7 % (35.0-45.0); LYMPHOCYTES # (AUTO) 0.3 X10'3 (1.1-4.8); LYMPHOCYTES % (AUTO) 1.5 % (21-51); MEAN CORPUSCULAR HEMOGLOBIN 31.4 PG (27.0-31.0); MEAN CORPUSCULAR HGB CONC 33.5 % (33.0-36.5); MEAN CORPUSCULAR VOLUME 93.7 FL (78-98); MEAN PLATELET VOLUME 9.9 FL (7.4-10.4); MONOCYTES # (AUTO) 0.4 X10'3 (0-0.9); MONOCYTES % (AUTO) 1.9 % (2-12); NEUTROPHILS # (AUTO) 20.4 X10'3 (1.8-7.7); NEUTROPHILS % (AUTO) 94.8 % (42-75); PLATELET COUNT 130 X10'3 (140-440); RED BLOOD COUNT 3.17 X10'6 (4.20-5.60); RED CELL DISTRIBUTION WIDTH 16.4 % (11.5-14.5); WHITE BLOOD COUNT 21.6 X10'3 (4.5-11.0)
[2017-03-04 04:12] LABS: ALANINE AMINOTRANSFERASE 98 U/L (12-78); ALBUMIN 1.8 G/DL (3.4-5.0); ALBUMIN/GLOBULIN RATIO 0.6 (1.1-1.5); ALKALINE PHOSPHATASE 109 IU/L (46-116); ANION GAP 5 (8-16); ASPARTATE AMINO TRANSFERASE 23 U/L (10-37); BILIRUBIN,TOTAL 0.5 MG/DL (0.1-1.0); BLOOD UREA NITROGEN 32 MG/DL (7-18); CHLORIDE 102 MMOL/L (99-107); GLUCOSE 170 MG/DL (70-104); MAGNESIUM 2.1 MG/DL (1.5-2.4); PHOSPHORUS 3.2 MG/DL (2.3-4.5); POTASSIUM 4.1 MMOL/L (3.5-5.1); SODIUM 140 MMOL/L (135-145); TOTAL PROTEIN 4.9 G/DL (6.4-8.2); eGFR > 90 ML/MIN
[2017-03-04 04:25] LABS: ABG BASE EXCESS 6.6 mmol/L (-2.0-3.0); ABG HCO3 29.9 mmol/L (22.0-26.0); ABG OXYGEN SATURATION 94.5 % (95-98); ABG PCO2 (T) 37.7 mmHg (32.0-45.0); ABG PH (T) 7.517 (7.350-7.450); ABG PO2 (T) 70.9 mmHg (83-108); ALLEN'S TEST Positive; FMetHb 0.3 % (0.3-1.12); FO2Hb 94.2 % (94-100); MINUTE VOLUME 8 L/min; PATIENT TEMPERATURE 37.1; PEEP 5 cm H2O; RESPIRATORY RATE 16 b/min; RESPIRATORY RATE (OBSERVED) 18 b/min; TIDAL VOLUME 359 mL
[2017-03-04 04:43] LABS: TOTAL CELLS COUNTED 100
[2017-03-04 04:46] LABS: ANISOCYTOSIS 1+; PLATELET ESTIMATE DECREASED; TOXIC GRANULATION 1+
[2017-03-04] MEDS: LACTOBACILLUS RHAMNOSUS GG 15 billion unit sprinkle caps PO SCH (07:30)
[2017-03-04] MEDS: heparin, porcine 5000 units/ml vial SQ SCH ×2 (07:51→20:35)
[2017-03-04] MEDS: docusate sodium 100mg/10ml UD cup PO SCH ×2 (07:51→20:00)
[2017-03-04] MEDS: famotidine/PF 10 mg/ml inj IV SCH ×2 (07:51→20:35)
[2017-03-04] MEDS: CefTRIAXone 2gm/NS 100ml IVPB 100 ML IV SCH (07:51)
[2017-03-04] MEDS: chlorhexidine gluconate 15ml Cup****oral rinse MM SCH (07:52)
[2017-03-04] MEDS: levoFLOXACIN-Levaquin 500mg/D5 100 ML IV SCH (07:52)
[2017-03-04] MEDS: aspirin 81mg tab.chew PO SCH (07:52)
[2017-03-04] MEDS: midazolam 100mg in NS 100ml 100 ML IV PRN (10:20)
[2017-03-04] MEDS: mineral oil/petrolatum ophthal oint EACHEYE SCH ×2 (14:00→20:00)
[2017-03-04] MEDS: atorvastatin 20mg tablet PO SCH (20:36)
[2017-03-04] MEDS: insulin glargine (Lantus) pen - multi-dose SQ SCH (20:40)
[2017-03-05] VITALS (24 sets, daily range): BP systolic 76–124; BP diastolic 50–77
[2017-03-05 01:59] LABS: BASOPHILS # (AUTO) 0.2 X10'3 (0-0.2); BASOPHILS % (AUTO) 1.2 % (0-1); EOSINOPHILS % (AUTO) 0 % (0-6); HEMATOCRIT 28.9 % (35.0-45.0); LYMPHOCYTES # (AUTO) 0.7 X10'3 (1.1-4.8); LYMPHOCYTES % (AUTO) 4.4 % (21-51); MEAN CORPUSCULAR HEMOGLOBIN 32.1 PG (27.0-31.0); MEAN CORPUSCULAR HGB CONC 34.6 % (33.0-36.5); MEAN CORPUSCULAR VOLUME 92.7 FL (78-98); MEAN PLATELET VOLUME 9.8 FL (7.4-10.4); MONOCYTES # (AUTO) 0.2 X10'3 (0-0.9); MONOCYTES % (AUTO) 1.5 % (2-12); NEUTROPHILS # (AUTO) 15.3 X10'3 (1.8-7.7); NEUTROPHILS % (AUTO) 92.9 % (42-75); PLATELET COUNT 92 X10'3 (140-440); RED BLOOD COUNT 3.12 X10'6 (4.20-5.60); RED CELL DISTRIBUTION WIDTH 15.1 % (11.5-14.5); WHITE BLOOD COUNT 16.4 X10'3 (4.5-11.0)
[2017-03-05] MEDS: mineral oil/petrolatum ophthal oint EACHEYE SCH ×4 (02:00→20:23)
[2017-03-05 02:17] LABS: ALANINE AMINOTRANSFERASE 72 U/L (12-78); ALBUMIN 1.7 G/DL (3.4-5.0); ALBUMIN/GLOBULIN RATIO 0.6 (1.1-1.5); ALKALINE PHOSPHATASE 105 IU/L (46-116); ANION GAP 4 (8-16); ASPARTATE AMINO TRANSFERASE 24 U/L (10-37); BILIRUBIN,TOTAL 0.4 MG/DL (0.1-1.0); BLOOD UREA NITROGEN 34 MG/DL (7-18); CALCIUM 7.8 MG/DL (8.5-10.1); CHLORIDE 102 MMOL/L (99-107); GLUCOSE 114 MG/DL (70-104); MAGNESIUM 1.8 MG/DL (1.5-2.4); PHOSPHORUS 3.1 MG/DL (2.3-4.5); PREALBUMIN 19.2 MG/DL (19-36); SODIUM 138 MMOL/L (135-145); TOTAL CARBON DIOXIDE 32.5 MMOL/L (24-32); TOTAL PROTEIN 4.7 G/DL (6.4-8.2); eGFR > 90 ML/MIN
[2017-03-05 02:27] LABS: BURR CELLS FEW; PLATELET ESTIMATE DECREASED; SCHISTOCYTES FEW
[2017-03-05] MEDS: amiodarone/D5 360MG/200ML BAG 250 ML IV SCH (02:40)
[2017-03-05] MEDS: insulin regular, human vial - multi-dose SQ SCH (02:45)
[2017-03-05 03:10] LABS: ABG BASE EXCESS 7.6 mmol/L (-2.0-3.0); ABG HCO3 31.4 mmol/L (22.0-26.0); ABG OXYGEN SATURATION 91.7 % (95-98); ABG PCO2 (T) 40.4 mmHg (32.0-45.0); ABG PH (T) 7.508 (7.350-7.450); ABG PO2 (T) 61.3 mmHg (83-108); ALLEN'S TEST Positive; FCOHb 0.1 % (0.5-1.5); FMetHb 0.1 % (0.3-1.12); FO2Hb 91.5 % (94-100); MINUTE VOLUME 8 L/min; PATIENT TEMPERATURE 36.7; PEEP 5 cm H2O; RESPIRATORY RATE 16 b/min; RESPIRATORY RATE (OBSERVED) 20 b/min; TOTAL HEMOGLOBIN 10.8 G/dl (12.0-16.0)
[2017-03-05] MEDS: ipratropium/albuterol 3ml nebule NEB SCH ×6 (03:12→23:11)
[2017-03-05] MEDS: NORepinephrine 8mg/ 250ml NS 250 ML IV SCH ×2 (06:03→12:00)
[2017-03-05] MEDS: midazolam 100mg in NS 100ml 100 ML IV PRN ×2 (06:03→16:55)
[2017-03-05] MEDS: DOBUTamine-DoBUTrex 500mg/D5W 250 ML IV SCH (06:04)
[2017-03-05] MEDS: LACTOBACILLUS RHAMNOSUS GG 15 billion unit sprinkle caps PO SCH (09:34)
[2017-03-05] MEDS: levoFLOXACIN-Levaquin 500mg/D5 100 ML IV SCH (09:34)
[2017-03-05] MEDS: famotidine/PF 10 mg/ml inj IV SCH ×2 (09:35→20:17)
[2017-03-05] MEDS: aspirin 81mg tab.chew PO SCH (09:35)
[2017-03-05] MEDS: docusate sodium 100mg/10ml UD cup PO SCH ×2 (09:35→20:11)
[2017-03-05] MEDS: heparin, porcine 5000 units/ml vial SQ SCH ×2 (09:37→20:20)
[2017-03-05] MEDS: dextrose 50%-water 50ml dispensing syringe IV PRN ×2 (09:37→15:15)
[2017-03-05] MEDS ORDERED: midodrine 5mg tablet PO ONE (09:45)
[2017-03-05] MEDS: methylPREDNISolone sod succ/PF 40mg inj. IV SCH (10:53)
[2017-03-05] MEDS: midodrine 5mg tablet PO SCH (15:17)
[2017-03-05] MEDS: atorvastatin 20mg tablet PO SCH (20:12)
[2017-03-05] MEDS: risperiDONE 0.5mg tablet PO SCH (20:12)
[2017-03-05] MEDS: insulin glargine (Lantus) pen - multi-dose SQ SCH (21:00)
[2017-03-06] VITALS (23 sets, daily range): BP systolic 85–148; BP diastolic 50–84
[2017-03-06] MEDS: midodrine 5mg tablet PO SCH ×3 (01:27→17:44)
[2017-03-06] MEDS: insulin regular, human vial - multi-dose SQ SCH ×4 (03:15→20:01)
[2017-03-06] MEDS: mineral oil/petrolatum ophthal oint EACHEYE SCH ×4 (03:15→20:15)
[2017-03-06 03:36] LABS: BASOPHILS % (AUTO) 0 % (0-1); EOSINOPHILS # (AUTO) 0.3 X10'3 (0-0.9); HEMATOCRIT 28.2 % (35.0-45.0); HEMOGLOBIN 9.6 g/dl (12.0-16.0); LYMPHOCYTES # (AUTO) 0.3 X10'3 (1.1-4.8); MEAN CORPUSCULAR HEMOGLOBIN 31.9 PG (27.0-31.0); MEAN CORPUSCULAR HGB CONC 34.2 % (33.0-36.5); MEAN CORPUSCULAR VOLUME 93.5 FL (78-98); MEAN PLATELET VOLUME 9.6 FL (7.4-10.4); MONOCYTES # (AUTO) 0.4 X10'3 (0-0.9); MONOCYTES % (AUTO) 2.7 % (2-12); NEUTROPHILS # (AUTO) 14.5 X10'3 (1.8-7.7); NEUTROPHILS % (AUTO) 93.3 % (42-75); PLATELET COUNT 140 X10'3 (140-440); RED BLOOD COUNT 3.02 X10'6 (4.20-5.60); RED CELL DISTRIBUTION WIDTH 16.5 % (11.5-14.5); WHITE BLOOD COUNT 15.5 X10'3 (4.5-11.0)
[2017-03-06] MEDS: ipratropium/albuterol 3ml nebule NEB SCH ×6 (03:37→23:24)
[2017-03-06 03:54] LABS: ALANINE AMINOTRANSFERASE 60 U/L (12-78); ALBUMIN 1.8 G/DL (3.4-5.0); ALBUMIN/GLOBULIN RATIO 0.6 (1.1-1.5); ALKALINE PHOSPHATASE 100 IU/L (46-116); ANION GAP 3 (8-16); ASPARTATE AMINO TRANSFERASE 20 U/L (10-37); BILIRUBIN,TOTAL 0.7 MG/DL (0.1-1.0); BLOOD UREA NITROGEN 34 MG/DL (7-18); BUN/CREATININE RATIO 56.7 (6.6-38.0); CALCIUM 7.6 MG/DL (8.5-10.1); CHLORIDE 99 MMOL/L (99-107); GLUCOSE 213 MG/DL (70-104); PHOSPHORUS 3.4 MG/DL (2.3-4.5); POTASSIUM 4.6 MMOL/L (3.5-5.1); SODIUM 135 MMOL/L (135-145); TOTAL CARBON DIOXIDE 32.6 MMOL/L (24-32); TOTAL PROTEIN 4.9 G/DL (6.4-8.2); eGFR > 90 ML/MIN
[2017-03-06 03:56] LABS: ABG BASE EXCESS 6.1 mmol/L (-2.0-3.0); ABG HCO3 29.8 mmol/L (22.0-26.0); ABG OXYGEN SATURATION 95.1 % (95-98); ABG PCO2 (T) 40.6 mmHg (32.0-45.0); ABG PH (T) 7.485 (7.350-7.450); ABG PO2 (T) 81.4 mmHg (83-108); ALLEN'S TEST Positive; FCOHb 0.3 % (0.5-1.5); FO2Hb 94.8 % (94-100); MINUTE VOLUME 8 L/min; PATIENT TEMPERATURE 37.5; PEEP 5 cm H2O; RESPIRATORY RATE 16 b/min; RESPIRATORY RATE (OBSERVED) 23 b/min; TOTAL HEMOGLOBIN 10.6 G/dl (12.0-16.0)
[2017-03-06] MEDS: DOBUTamine-DoBUTrex 500mg/D5W 250 ML IV SCH ×2 (04:11→22:33)
[2017-03-06] MEDS: NORepinephrine 8mg/ 250ml NS 250 ML IV SCH ×2 (04:12→22:32)
[2017-03-06] MEDS: FENTANYL-0.9 % NACL/PF 100 ML IV PRN (06:42)
[2017-03-06] MEDS: LACTOBACILLUS RHAMNOSUS GG 15 billion unit sprinkle caps PO SCH (07:30)
[2017-03-06] MEDS: aspirin 81mg tab.chew PO SCH (08:37)
[2017-03-06] MEDS: famotidine/PF 10 mg/ml inj IV SCH ×2 (08:37→20:13)
[2017-03-06] MEDS: levoFLOXACIN-Levaquin 500mg/D5 100 ML IV SCH (08:38)
[2017-03-06] MEDS: heparin, porcine 5000 units/ml vial SQ SCH ×2 (08:38→20:05)
[2017-03-06] MEDS: methylPREDNISolone sod succ/PF 40mg inj. IV SCH (08:38)
[2017-03-06] MEDS: docusate sodium 100mg/10ml UD cup PO SCH ×2 (08:38→20:06)
[2017-03-06] MEDS: multivitamins, therapeutics tablet PO SCH (08:49)
[2017-03-06] MEDS ORDERED: furosemide inj 100 ML IV SCH (13:25)
[2017-03-06] MEDS: midazolam 100mg in NS 100ml 100 ML IV PRN (18:24)
[2017-03-06 19:12] LABS: ALBUMIN 2.1 G/DL (3.4-5.0); ANION GAP 3 (8-16); BLOOD UREA NITROGEN 32 MG/DL (7-18); BUN/CREATININE RATIO 45.7 (6.6-38.0); CALCIUM 8.1 MG/DL (8.5-10.1); CHLORIDE 96 MMOL/L (99-107); GLUCOSE 250 MG/DL (70-104); MAGNESIUM 2.1 MG/DL (1.5-2.4); PHOSPHORUS 3.6 MG/DL (2.3-4.5); POTASSIUM 4.5 MMOL/L (3.5-5.1); SODIUM 135 MMOL/L (135-145); TOTAL CARBON DIOXIDE 35.7 MMOL/L (24-32); eGFR 84 ML/MIN
[2017-03-06] MEDS: insulin glargine (Lantus) pen - multi-dose SQ SCH (20:02)
[2017-03-06] MEDS: risperiDONE 0.5mg tablet PO SCH (20:04)
[2017-03-06] MEDS: atorvastatin 20mg tablet PO SCH (20:04)
[2017-03-06 23:44] LABS: ALBUMIN 2.1 G/DL (3.4-5.0); ANION GAP 5 (8-16); BLOOD UREA NITROGEN 32 MG/DL (7-18); BUN/CREATININE RATIO 53.3 (6.6-38.0); CALCIUM 8.1 MG/DL (8.5-10.1); CHLORIDE 95 MMOL/L (99-107); GLUCOSE 166 MG/DL (70-104); PHOSPHORUS 3.9 MG/DL (2.3-4.5); POTASSIUM 4.1 MMOL/L (3.5-5.1); SODIUM 136 MMOL/L (135-145); TOTAL CARBON DIOXIDE 36.2 MMOL/L (24-32); eGFR > 90 ML/MIN
[2017-03-07] VITALS (23 sets, daily range): BP systolic 83–148; BP diastolic 55–87
[2017-03-07] MEDS: midodrine 5mg tablet PO SCH ×3 (00:45→16:40)
[2017-03-07] MEDS: mineral oil/petrolatum ophthal oint EACHEYE SCH ×4 (03:17→20:00)
[2017-03-07] MEDS: insulin regular, human vial - multi-dose SQ SCH ×3 (03:17→14:29)
[2017-03-07] MEDS: ipratropium/albuterol 3ml nebule NEB SCH ×6 (03:22→23:02)
[2017-03-07 03:25] LABS: BASOPHILS % (AUTO) 0.2 % (0-1); EOSINOPHILS # (AUTO) 0.3 X10'3 (0-0.9); EOSINOPHILS % (AUTO) 1.6 % (0-6); HEMATOCRIT 29.8 % (35.0-45.0); LYMPHOCYTES # (AUTO) 0.4 X10'3 (1.1-4.8); LYMPHOCYTES % (AUTO) 2.3 % (21-51); MEAN CORPUSCULAR HEMOGLOBIN 31.6 PG (27.0-31.0); MEAN CORPUSCULAR HGB CONC 33.7 % (33.0-36.5); MEAN CORPUSCULAR VOLUME 93.8 FL (78-98); MEAN PLATELET VOLUME 8.8 FL (7.4-10.4); MONOCYTES # (AUTO) 0.6 X10'3 (0-0.9); MONOCYTES % (AUTO) 3.1 % (2-12); NEUTROPHILS # (AUTO) 17.1 X10'3 (1.8-7.7); NEUTROPHILS % (AUTO) 92.8 % (42-75); PLATELET COUNT 177 X10'3 (140-440); RED BLOOD COUNT 3.17 X10'6 (4.20-5.60); RED CELL DISTRIBUTION WIDTH 16.7 % (11.5-14.5); WHITE BLOOD COUNT 18.5 X10'3 (4.5-11.0)
[2017-03-07 03:35] LABS: ABG BASE EXCESS 13.7 mmol/L (-2.0-3.0); ABG HCO3 38.3 mmol/L (22.0-26.0); ABG OXYGEN SATURATION 93.8 % (95-98); ABG PCO2 (T) 47.6 mmHg (32.0-45.0); ABG PH (T) 7.521 (7.350-7.450); ABG PO2 (T) 67.9 mmHg (83-108); ALLEN'S TEST Positive; FO2Hb 93.8 % (94-100); MINUTE VOLUME 8 L/min; PATIENT TEMPERATURE 36.4; PEEP 5 cm H2O; RESPIRATORY RATE 16 b/min; RESPIRATORY RATE (OBSERVED) 24 b/min; TOTAL HEMOGLOBIN 11.1 G/dl (12.0-16.0)
[2017-03-07 03:38] LABS: GLUCOSE 161 MG/DL (70-104)
[2017-03-07 03:39] LABS: ANION GAP 1 (8-16); BLOOD UREA NITROGEN 32 MG/DL (7-18); BUN/CREATININE RATIO 53.3 (6.6-38.0); CALCIUM 8.1 MG/DL (8.5-10.1); CHLORIDE 95 MMOL/L (99-107); POTASSIUM 3.8 MMOL/L (3.5-5.1); SODIUM 137 MMOL/L (135-145); eGFR > 90 ML/MIN
[2017-03-07 03:43] LABS: TOTAL CARBON DIOXIDE 41.5 MMOL/L (24-32)
[2017-03-07] MEDS: FENTANYL-0.9 % NACL/PF 100 ML IV PRN ×2 (04:33→18:55)
[2017-03-07] MEDS: potassium Cl 40MEQ/250ML bag 250 ML IV PRN (07:35)
[2017-03-07] MEDS: docusate sodium 100mg/10ml UD cup PO SCH ×2 (07:49→21:19)
[2017-03-07] MEDS: famotidine/PF 10 mg/ml inj IV SCH ×2 (07:50→21:20)
[2017-03-07] MEDS: methylPREDNISolone sod succ/PF 40mg inj. IV SCH (07:50)
[2017-03-07] MEDS: multivitamins, therapeutics tablet PO SCH (07:50)
[2017-03-07] MEDS: LACTOBACILLUS RHAMNOSUS GG 15 billion unit sprinkle caps PO SCH (07:50)
[2017-03-07] MEDS: aspirin 81mg tab.chew PO SCH (07:50)
[2017-03-07] MEDS: heparin, porcine 5000 units/ml vial SQ SCH ×2 (07:50→21:14)
[2017-03-07] MEDS: midazolam 100mg in NS 100ml 100 ML IV PRN ×2 (08:45→18:54)
[2017-03-07] MEDS: levoFLOXACIN-Levaquin 500mg/D5 100 ML IV SCH (10:03)
[2017-03-07 10:10] LABS: ALBUMIN 2.1 G/DL (3.4-5.0); ANION GAP -2 (8-16); BLOOD UREA NITROGEN 34 MG/DL (7-18); BUN/CREATININE RATIO 56.7 (6.6-38.0); CALCIUM 8.2 MG/DL (8.5-10.1); CHLORIDE 95 MMOL/L (99-107); GLUCOSE 112 MG/DL (70-104); SODIUM 136 MMOL/L (135-145); eGFR > 90 ML/MIN
[2017-03-07 10:18] LABS: TOTAL CARBON DIOXIDE 42.9 MMOL/L (24-32)
[2017-03-07 10:31] LABS: PHOSPHORUS 5.2 MG/DL (2.3-4.5)
[2017-03-07 16:11] LABS: ALBUMIN 1.9 G/DL (3.4-5.0); ANION GAP 0 (8-16); BLOOD UREA NITROGEN 35 MG/DL (7-18); BUN/CREATININE RATIO 58.3 (6.6-38.0); CHLORIDE 95 MMOL/L (99-107); GLUCOSE 99 MG/DL (70-104); POTASSIUM 4.7 MMOL/L (3.5-5.1); SODIUM 136 MMOL/L (135-145); eGFR > 90 ML/MIN
[2017-03-07 16:20] LABS: TOTAL CARBON DIOXIDE 40.9 MMOL/L (24-32)
[2017-03-07] MEDS: DOBUTamine-DoBUTrex 500mg/D5W 250 ML IV SCH (18:54)
[2017-03-07] MEDS: NORepinephrine 8mg/ 250ml NS 250 ML IV SCH (18:56)
[2017-03-07] MEDS: insulin glargine (Lantus) pen - multi-dose SQ SCH (20:21)
[2017-03-07] MEDS: risperiDONE 0.5mg tablet PO SCH (21:18)
[2017-03-07] MEDS: atorvastatin 20mg tablet PO SCH (21:19)
[2017-03-07 22:50] LABS: ALANINE AMINOTRANSFERASE 46 U/L (12-78); ALBUMIN/GLOBULIN RATIO 0.6 (1.1-1.5); ALKALINE PHOSPHATASE 97 IU/L (46-116); ANION GAP -1 (8-16); ASPARTATE AMINO TRANSFERASE 21 U/L (10-37); BILIRUBIN,TOTAL 0.6 MG/DL (0.1-1.0); BLOOD UREA NITROGEN 31 MG/DL (7-18); CALCIUM 8.3 MG/DL (8.5-10.1); CHLORIDE 96 MMOL/L (99-107); GLUCOSE 99 MG/DL (70-104); PHOSPHORUS 4.4 MG/DL (2.3-4.5); POTASSIUM 4.9 MMOL/L (3.5-5.1); SODIUM 139 MMOL/L (135-145); TOTAL PROTEIN 5.4 G/DL (6.4-8.2); eGFR > 90 ML/MIN
[2017-03-07 23:00] LABS: ABG BASE EXCESS 14.2 mmol/L (-2.0-3.0); ABG HCO3 40.6 mmol/L (22.0-26.0); ABG OXYGEN SATURATION 83.8 % (95-98); ABG PCO2 (T) 62.1 mmHg (32.0-45.0); ABG PH (T) 7.435 (7.350-7.450); ABG PO2 (T) 50.3 mmHg (83-108); ALLEN'S TEST Positive; FCOHb 0.3 % (0.5-1.5); FLOW 1 L/min; FO2Hb 83.5 % (94-100); PATIENT TEMPERATURE 37.3; PEEP 5 cm H2O; RESPIRATORY RATE 16 b/min; TOTAL HEMOGLOBIN 10.8 G/dl (12.0-16.0)
[2017-03-07 23:05] LABS: TROPONIN I 0.36 NG/ML (0.0-0.05)
[2017-03-08] VITALS: BP 87/53
[2017-03-08 01:00] VITALS: BP 81/59
[2017-03-08] MEDS ORDERED: diltiazem 5mg/ml 5ml inj. IV ONE (01:15)
[2017-03-08 01:25] VITALS: BP 80/61
== END 2017-03-08 07:00 | disposition expired | DRG 870 ==
LOC: ER 12:51 → ED HOLD 14:36 → ICU 2S 15:22
PROVIDERS: ADMIT Internal Medicine Critical Care Medicine; ATTEND Internal Medicine Critical Care Medicine
PROC: 5A1955Z Respiratory Ventilation, Greater than 96 Consecutive Hours (ICD-10-PCS; principal; 2017-02-24)
PROC: 0BH17EZ Insertion of Endotracheal Airway into Trachea, Via Natural or Artificial Opening (ICD-10-PCS; 2017-02-24)
PROC: 02HV33Z Insertion of Infusion Device into Superior Vena Cava, Percutaneous Approach (ICD-10-PCS; 2017-02-24)
PROC: 04HK33Z Insertion of Infusion Device into Right Femoral Artery, Percutaneous Approach (ICD-10-PCS; 2017-02-24)
PROC: 4A023N8 Measurement of Cardiac Sampling and Pressure, Bilateral, Percutaneous Approach (ICD-10-PCS; 2017-02-26)
PROC: B2111ZZ Fluoroscopy of Multiple Coronary Arteries using Low Osmolar Contrast (ICD-10-PCS; 2017-02-26)
PROC: B2151ZZ Fluoroscopy of Left Heart using Low Osmolar Contrast (ICD-10-PCS; 2017-02-26)
PROC: B2131ZZ Fluoroscopy of Multiple Coronary Artery Bypass Grafts using Low Osmolar Contrast (ICD-10-PCS; 2017-02-26)
PROC: B2181ZZ Fluoroscopy of Left Internal Mammary Bypass Graft using Low Osmolar Contrast (ICD-10-PCS; 2017-02-26)
PROC: 0BJ08ZZ Inspection of Tracheobronchial Tree, Via Natural or Artificial Opening Endoscopic (ICD-10-PCS; 2017-03-01)
PROC: 02HV33Z Insertion of Infusion Device into Superior Vena Cava, Percutaneous Approach (ICD-10-PCS; 2017-03-05)
PROC: 5A12012 Performance of Cardiac Output, Single, Manual (ICD-10-PCS; 2017-03-08)
DX: A41.9 Sepsis, unspecified organism (principal); I21.4 Non-ST elevation (NSTEMI) myocardial infarction; J96.01 Acute respiratory failure with hypoxia; R57.0 Cardiogenic shock; I47.2 Ventricular tachycardia; E87.2 Acidosis; B85.2 Pediculosis, unspecified; I50.21 Acute systolic (congestive) heart failure; J13 Pneumonia due to Streptococcus pneumoniae; N39.0 Urinary tract infection, site not specified; N17.9 Acute kidney failure, unspecified; I42.9 Cardiomyopathy, unspecified; J44.0 Chronic obstructive pulmonary disease with (acute) lower respiratory infection; E87.0 Hyperosmolality and hypernatremia; R65.20 Severe sepsis without septic shock; R00.1 Bradycardia, unspecified; I25.10 Atherosclerotic heart disease of native coronary artery without angina pectoris; F17.210 Nicotine dependence, cigarettes, uncomplicated; Z79.899 Other long term (current) drug therapy; Z95.1 Presence of aortocoronary bypass graft; Z98.82 Breast implant status; Z59.0 Homelessness
CPT/HCPCS: 36415; 36556; 36569; 36600; 71045; 76604; 76937; 80053; 80061; 80069; 81001; 81025; 82803; 82810; 82948; 83036; 83605; 83721; 83735; 83880; 84100; 84132; 84134; 84145; 84439; 84443; 84484; 85014; 85018; 85025; 85610; 85730; 86022; 86703; 86706; 86803; 87040; 87070; 87077; 87186; 87502; 87503; 93005; 93306; 93461; 94002; 94003; 94640; 94760; 96365; 96367; 96368; 96375; 97162; 97530; 99152; 99153; 99291; 99292; A6212; A6213; A6257; A6449; A7015; C1751; C1758; C1769; C1894; J0153; J0696; J1250; J1644; J1650; J1815; J1940; J1956; J2001; J2060; J2250; J2704; J2920; J2930; J3010; J3370; J3475; J3480; J3490; J7030; P9047; Q9967